=== PATIENT | male | born 1960 | race American Indian/Alaskan Native ===

== ENCOUNTER 2016-10-24 10:33 | Outpatient (CLI) | payer BC ==
[2016-10-24] MEDS ORDERED: XYLOCAINE TOPICAL 4% TP ONE ×2 (11:02→11:58)
== END 2016-10-24 10:34 | disposition home or self-care (01) ==
LOC: WOUND 10:33
PROVIDERS: ATTEND Internal Medicine
DX: L97.311 Non-pressure chronic ulcer of right ankle limited to breakdown of skin (principal); I87.011 Postthrombotic syndrome with ulcer of right lower extremity; I87.2 Venous insufficiency (chronic) (peripheral); I10 Essential (primary) hypertension; E66.01 Morbid (severe) obesity due to excess calories; Z86.718 Personal history of other venous thrombosis and embolism
CPT/HCPCS: 11042; 87075; 87116; G0463

== ENCOUNTER 2016-10-31 13:43 | Outpatient (CLI) | payer BC | END 2016-10-31 13:44 | disposition home or self-care (01) | LOC: WOUND 13:43 | PROVIDERS: ATTEND Surgery | DX: I87.2 Venous insufficiency (chronic) (peripheral) (principal); L97.311 Non-pressure chronic ulcer of right ankle limited to breakdown of skin; E66.9 Obesity, unspecified; Z86.718 Personal history of other venous thrombosis and embolism | CPT/HCPCS: 29580 ==